=== PATIENT | male | born 1990 | race Hispanic/Latino ===

== ENCOUNTER 2019-04-22 09:46 | Emergency (ER) | payer SELFPAY ==
[2019-04-22] MEDS ORDERED: Ondansetron ODT 4 MG TAB ONE (11:55)
--- NOTE | 2019-04-26 11:11 | EKG ---
Test Reason : Blood Pressure : / mmHG Vent. Rate : 090 BPM Atrial Rate : 090 BPM P-R Int : 140 ms QRS Dur : 086 ms QT Int : 338 ms P-R-T Axes : 024 055 020 degrees QTc Int : 413 ms Normal sinus rhythm Nonspecific ST abnormality Abnormal ECG Confirmed by DAVY CABELLO ([id number]), food expeditor DEMARIO TAFOYA ([id number] on 04/26/2019 11:10:53 AM Referred By: Confirmed By:DAVY CABELLO
== END 2019-04-22 12:05 | disposition home or self-care (01) ==
LOC: ERS 09:46
DX: B34.9 Viral infection, unspecified (principal); E86.0 Dehydration
CPT/HCPCS: 93005; Q0162